=== PATIENT | female | born 1955 | race Caucasian/White ===

== ENCOUNTER 2016-12-27 06:50 | Day surgery (SDC) | payer OTHER ==
[2016-12-27] MEDS ORDERED: Sodium Chloride 0.9% 10 ML Syringe FLUSH PRN (07:00)
[2016-12-27] MEDS ORDERED: Lactated Ringers 1,000 ML IV SCH (07:00)
[2016-12-27] MEDS ORDERED: Propofol 200 MG/20 ML SDV IV ONE (08:00)
[2016-12-27] MEDS ORDERED: ePHEDrine 50 MG/ML SDV IV ONE (08:00)
[2016-12-27] MEDS ORDERED: Glycopyrrolate 0.2 MG/ML 2 ML SDV IV ONE (08:00)
[2016-12-27] MEDS ORDERED: fentaNYL 100 MCG/2 ML SDV IV ONE (08:00)
[2016-12-27] MEDS ORDERED: Dexamethasone 4 MG/ML 5 ML MDV IVPUSH ONE (08:00)
[2016-12-27] MEDS ORDERED: Lactated Ringers 1,000 ML IV ONE (08:00)
[2016-12-27] MEDS ORDERED: Neostigmine Methylsulfate 10 MG/10 ML MDV IVPUSH ONE (08:00)
[2016-12-27] MEDS ORDERED: Midazolam 1 MG/ML 2 ML SDV IV ONE (08:00)
[2016-12-27] MEDS ORDERED: Rocuronium 100 MG/10 ML MDV IV ONE (08:00)
[2016-12-27] MEDS ORDERED: Ondansetron 4 MG/2 ML SDV IVPUSH ONE (08:00)
[2016-12-27] MEDS ORDERED: diphenhydrAMINE 50 MG/ML SDV IV ONE (08:00)
[2016-12-27] MEDS ORDERED: Succinylcholine 200 MG/10 ML MDV IV ONE (08:00)
--- NOTE | 2016-12-27 08:05 | PCM.HPR ---
H & P Addendum review - H & P Addendum Review Date of Original H & P: 12/13/16 Date Reviewed: 12/27/16 Time Reviewed: 08:00 Patient was Examined: No Changes
--- NOTE | 2016-12-27 09:38 | PCM.OPNOTE ---
- General Post-Op/Procedure Note Date of Surgery/Procedure: 12/27/16 Operative Procedure(s): Lap malathi Findings: Large GB Pre Op Diagnosis: Symptomatic Cholelithiasis Post-Op Diagnosis: Same Anesthesia Technique: General ET Tube Primary Surgeon: Juan Escoto Anesthesia Provider: Jessy Portillo Pathology: Gall Bladder EBL in mLs: 20 Complications: None Condition: Good
[2016-12-27] MEDS ORDERED: Morphine 2 MG/ML Syringe IVPUSH PRN (09:45)
[2016-12-27] MEDS ORDERED: Acetaminophen/HYDROcodone 325-5 MG Tab PO PRN (10:11)
--- NOTE | 2016-12-27 11:47 | OR ---
DATE OF OPERATION: 12/27/2016 SURGEON: Juan Escoto MD PREOPERATIVE DIAGNOSIS: Symptomatic cholelithiasis. POSTOPERATIVE DIAGNOSES: Symptomatic cholelithiasis with chronic cholecystitis. PROCEDURE: Laparoscopic cholecystectomy. ANESTHESIA: General. PROCEDURE IN DETAIL: The patient was brought to the operating room, where general endotracheal anesthesia was administered. Her abdomen was prepped with ChloraPrep and draped sterilely. An infraumbilical incision was made and extended into the peritoneal cavity without difficulty. The Shawna cannula was introduced and pneumoperitoneum obtained. 5-mm ports were placed in the usual positions. The patient was placed in reverse Trendelenburg position and rotated to the left. The gallbladder was very large and floppy which made visualization somewhat difficult. The rest of the exploration revealed normal liver, stomach, bowel, and peritoneal surfaces. The gallbladder was grasped and retracted cephalad. The cystic duct and cystic artery were dissected free with minimal difficulty. The cystic artery was doubly clipped proximally, once distally, and then transected. Further dissection revealed the anatomy of the cystic duct entering the gallbladder and continuing towards the common bile duct. This was doubly clipped proximally, once distally, and then transected. A fairly long dissection was then undertaken to separate the gallbladder from the bed of the liver as it was difficult to tell the plane. I did clip some small vessels along the way for hemostasis. Once the gallbladder was completely freed up, was brought out part way through the umbilicus, and then opened and bile and stones removed to remove with the rest of the way. The right upper quadrant was thoroughly inspected and irrigated and return was clear and hemostasis was assured. Clips were all in place. Ports were removed under direct vision and remained hemostatic. Umbilical fascia was closed with [id number] 0 Vicryl. Skin was closed with 4-0 Vicryl subcuticular sutures. Benzoin and Steri-Strips were placed and Band-Aids applied. The patient tolerated the procedure well. ESTIMATED BLOOD LOSS: 20 mL. She returned to postanesthesia in stable condition. /[id number] CAROLYN/LEIGH ANN
== END 2016-12-27 12:19 | disposition home or self-care (01) ==
LOC: FB.SDS 06:50
PROVIDERS: ATTEND Surgery
DX: K80.10 Calculus of gallbladder with chronic cholecystitis without obstruction (principal); D18.09 Hemangioma of other sites; I10 Essential (primary) hypertension; E78.5 Hyperlipidemia, unspecified; Z90.710 Acquired absence of both cervix and uterus; Z88.8 Allergy status to other drugs, medicaments and biological substances
CPT/HCPCS: 47562; 88304; A9270; J0131; J0330; J1100; J1200; J2250; J2405; J2704; J2710; J3010; J7120; J3490